=== PATIENT | female | born 1980 | race Hispanic/Latino ===

== ENCOUNTER 2025-02-27 11:46 | Emergency (ER) | payer OTHER ==
[2025-02-27 12:17] LABS: #Basophils 0.03 10x3/uL (0.0-0.2); #Eosinophils 0.28 10x3/uL (0.0-0.7); #Monocytes 0.51 10x3/uL (0.11-0.59); #Neutrophils 7.21 10x3/uL (1.40-6.50); %Basophils 0.3 % (0.0-1.0); %Eosinophils 3.0 % (0.0-10.0); %Lymphocytes 14.4 % (21.0-51.0); %Monocytes 5.4 % (0.0-10.0); %Neutrophils 76.5 % (42.0-75.0); Hematocrit 42.1 % (36.0-47.0); Hemoglobin 13.9 g/dL (12.0-16.0); Mean Corpuscular Hemoglobin 30.0 pg (27.0-31.0); Mean Corpuscular Volume 90.9 fL (78.0-98.0); Platelet Count 307 10x3/uL (130-400); Red Blood Cell (RBC) Count 4.63 mill/uL (4.20-5.40); White Blood Cell (WBC) Count 9.43 10x3/uL (4.8-10.8)
[2025-02-27 12:25] LABS: Bacteria/HPF 4+ HPF (None Seen); CAUTI Indications for Culture Pregnancy; Glucose, Urine (Dipstick) Normal (Negative); Leukocyte 500 Leu/uL (Negative); Protein, Urine (Dipstick) Negative (Neg-Trace); RBC/HPF 0-3 HPF (0-3); Specific Gravity, Urine 1.013 (1.002-1.036)
[2025-02-27 12:29] LABS: Urine Culture Reflex Yes Yes
[2025-02-27 12:41] LABS: ALT (SGPT) 20 U/L (Less than 34); AST (SGOT) 25 U/L (11-34); Albumin 3.2 g/dL (3.1-4.5); Alkaline Phosphatase 73 U/L (40-110); Anion Gap 13 mmol/L (10-20); BUN (Urea Nitrogen) 5 mg/dL (7.0-18.7); Bilirubin, Total 0.4 mg/dL (0.3-1.2); Calc. Creatinine Clearance 0 mL/min (70-130); Calcium 8.8 mg/dL (7.8-10.44); Carbon Dioxide 22 mmol/L (22-29); Chloride 106 mmol/L (98-107); Globulin 3.6 g/dL (2.4-3.5); Glucose 131 mg/dL (70-105); Potassium 3.5 mmol/L (3.5-5.1); Sodium 137 mmol/L (136-145)
[2025-02-27] MEDS ORDERED: cefTRIAXone (ROCEPHIN) 2 GM VIAL ONE (13:40)
[2025-02-27] MEDS ORDERED: Ondansetron PF 4 MG/2 ML Vial ONE (13:48)
[2025-02-27] MEDS ORDERED: Famotidine/PF 20 mg/2ml Vial ONE (14:04)
[2025-02-27] MEDS ORDERED: diphenhydrAMINE 50 MG/ML VIAL ONE (14:04)
== END 2025-02-27 15:28 | disposition home or self-care (01) ==
LOC: ERS 11:46
DX: O23.12 Infections of bladder in pregnancy, second trimester (principal); N30.90 Cystitis, unspecified without hematuria; Z3A.21 21 weeks gestation of pregnancy
CPT/HCPCS: 36415; 76815; 80053; 81001; 84702; 85025; 87077; 87086; 87186; 96374; 96375; J0696; J1200; J1308; J2405